=== PATIENT | female | born 1990 | race Caucasian/White ===

== ENCOUNTER 2019-03-18 21:05 | Inpatient (IN) ==
[2019-03-18] MEDS ORDERED: ONDANSETRON 4 MG/2 ML VIAL IV PRN (21:18)
[2019-03-18] MEDS ORDERED: MEPERIDINE 50 MG/1 ML VIAL IV PRN (21:18)
[2019-03-18] MEDS ORDERED: BUTORPHANOL 2 MG/ML VIAL IV PRN (21:18)
[2019-03-18] MEDS ORDERED: CITRIC ACID/SODIUM CITRATE 30 ML UDCUP PO PRN (21:24)
[2019-03-18] MEDS ORDERED: FAMOTIDINE 20 MG/2 ML VIAL IV PRN (21:25)
[2019-03-18] MEDS ORDERED: ePHEDrine 50 MG/ML AMP IV PRN (21:26)
[2019-03-18] MEDS ORDERED: fentaNYL 2 MCG/ROPIV 0.2% EPID 100 ML EPIDURAL SCH (21:30)
[2019-03-18] MEDS ORDERED: LACTATED RINGERS 1,000 ML IV SCH (21:30)
[2019-03-18 21:42] LABS: Basophils % 0.2 % (0.0-0.8); Eosinophils % 0.2 % (0.00-10.9); Hematocrit 32.7 VOL% (35.7-47.0); Hemoglobin 11.7 GM/DL (12.0-16.0); Immature Granulocytes % 0.9 %; Immature Granulocytes Absolute 0.12 #; Lymphocytes % 15.6 % (21.3-54.2); Mean Corpuscular HGB Conc 35.8 GM/DL (32-36); Mean Corpuscular Volume 87.7 FL (87-102); Mean Platelet Volume 10.9 FL (9.6-12.0); Monocytes % 7.2 % (1.7-12.7); Neutrophils % 75.9 % (38.7-73.9); Platelet Count 138 T/CUMM (130-400); Red Blood Count 3.73 MC/CUMM (3.8-5.5); Red Cell Distribution Width 13.1 % (9.3-17.3); White Blood Count 12.9 T/CUMM (4-12)
[2019-03-18 22:08] LABS: Alanine Aminotransferase 14 U/L (13-56); Albumin 2.9 G/DL (3.4-5.0); Alkaline Phosphatase 141 U/L (45-117); Aspartate Amino Transferase 17 U/L (0-37); Bilirubin,Total < 0.39 MG/DL (0.2-1.0); Blood Urea Nitrogen 10 MG/DL (7-18); Calcium 8.9 MG/DL (8.5-10.1); Estimated Glom Filtration Rate 128 ML/MIN; Glucose 85 MG/DL (74-106); Osmolality,Calculated 274.5 MOS/KG (273-304); Total Protein 6.6 G/DL (6.4-8.3)
[2019-03-19] MEDS ORDERED: MEPERIDINE 25 MG/1 ML VIAL IV PRN (01:29)
[2019-03-19] MEDS ORDERED: OXYTOCIN/LR 20 UNIT/1,000 ML BAG IV ONE ×3 (07:42→09:25)
[2019-03-19] MEDS ORDERED: OXYTOCIN/LR 20 UNIT/1,000 ML BAG IV SCH (08:00)
[2019-03-19 08:53] LABS: Apearance,Urine CLEAR (Clear); Bilirubin,Urine Negative (Negative); Blood, Urine Negative (Negative); Glucose,Urine (UA) Negative (Negative); Ketones,Urine Negative (Negative); Mucus,Urine Occasional /LPF (Occasional); Nitrite,Urine Negative (Negative); Protein,Urine Negative; RBC,Urine <1 /HPF (0-4); Squamous Epithelial Cell,Urine Occasional /HPF (0-10); Urine Color Yellow (Yellow); Urine Specific Gravity 1.015 (1.001-1.035); WBC,Urine <1 /HPF (0-6)
[2019-03-19] MEDS ORDERED: TRANEXAMIC ACID 1,000 MG/10 ML VIAL ONE (08:56)
[2019-03-19] MEDS ORDERED: miSOPROStoL 200 MCG TABLET ONE (08:56)
[2019-03-19] MEDS ORDERED: CARBOPROST TROMETHAMINE 250 MCG/ML AMP IM ONE (08:56)
[2019-03-19] MEDS ORDERED: METHYLERGONOVINE 0.2 MG/1 ML AMP ONE (08:56)
[2019-03-19] MEDS ORDERED: oxyCODONE/ACETAMINOPHEN 5-325 MG TABLET PO PRN (09:25)
[2019-03-19] MEDS ORDERED: WITCH HAZEL PADS 100/JAR TOP PRN (09:25)
[2019-03-19] MEDS ORDERED: BENZOCAINE 20%/MENTHOL 0.5% SPRAY 56 GM CAN TOP PRN (09:25)
[2019-03-19] MEDS ORDERED: MEASLES/MUMPS/RUBELLA VACCINE 0.5 ML VIAL SUBCUT ONE (09:25)
[2019-03-19] MEDS ORDERED: BISACODYL 10 MG SUPP RECTAL PRN (09:25)
[2019-03-19] MEDS ORDERED: HYDROCORTISONE 2.5% RECTAL CREAM 30 GM TUBE TOP PRN (09:25)
[2019-03-19] MEDS ORDERED: ACETAMINOPHEN 325 MG TABLET PO PRN (09:25)
[2019-03-19] MEDS ORDERED: DIPH/TET/ACEL PERT BOOSTER VACCINE 0.5 ML VIAL IM ONE (09:25)
[2019-03-19] MEDS ORDERED: LANOLIN 50% CREAM 0.3 OZ TUBE TOP PRN (09:25)
[2019-03-19] MEDS ORDERED: ONDANSETRON 4 MG/2 ML VIAL IV PRN (09:25)
[2019-03-19] MEDS ORDERED: RHO(D) IMMUNE GLOBULIN 300 MCG SYRINGE IM ONE (09:25)
[2019-03-19] MEDS: oxyCODONE/ACETAMINOPHEN 5-325 MG TABLET PO PRN ×2 (13:55→19:56)
[2019-03-19] MEDS: IBUPROFEN 800 MG TABLET PO PRN ×2 (13:55→21:34)
[2019-03-19] MEDS: DOCUSATE SODIUM 100 MG CAPSULE PO SCH (21:33)
[2019-03-20] MEDS ORDERED: SIMETHICONE CHEW 80 MG TABLET PO PRN (00:22)
[2019-03-20] MEDS: oxyCODONE/ACETAMINOPHEN 5-325 MG TABLET PO PRN (01:40)
[2019-03-20] MEDS: IBUPROFEN 800 MG TABLET PO PRN ×3 (04:03→20:23)
[2019-03-20 05:45] LABS: Basophils % 0.3 % (0.0-0.8); Eosinophils # 0.1 10*3/uL (0.0-0.87); Eosinophils % 0.9 % (0.00-10.9); Hematocrit 30.2 VOL% (35.7-47.0); Hemoglobin 10.6 GM/DL (12.0-16.0); Immature Granulocytes % 0.7 %; Lymphocytes # 2.1 10*3/uL (1.4-4.0); Lymphocytes % 14.2 % (21.3-54.2); Mean Corpuscular HGB Conc 35.1 GM/DL (32-36); Mean Corpuscular Volume 88.6 FL (87-102); Mean Platelet Volume 11.2 FL (9.6-12.0); Monocytes % 6.4 % (1.7-12.7); Neutrophils % 77.5 % (38.7-73.9); Platelet Count 102 T/CUMM (130-400); Red Blood Count 3.41 MC/CUMM (3.8-5.5); Red Cell Distribution Width 13.4 % (9.3-17.3); White Blood Count 14.7 T/CUMM (4-12)
[2019-03-20] MEDS: DOCUSATE SODIUM 100 MG CAPSULE PO SCH ×2 (08:20→20:21)
[2019-03-20] MEDS ORDERED: SIMETHICONE CHEW 80 MG TABLET PO SCH (20:22)
[2019-03-20] MEDS: SIMETHICONE CHEW 80 MG TABLET PO PRN (20:33)
[2019-03-21] MEDS: IBUPROFEN 800 MG TABLET PO PRN ×2 (04:44→10:12)
[2019-03-21] MEDS: SIMETHICONE CHEW 80 MG TABLET PO PRN (04:44)
[2019-03-21 07:21] VITALS: BP 104/61
[2019-03-21] MEDS: DOCUSATE SODIUM 100 MG CAPSULE PO SCH (10:13)
== END 2019-03-21 12:00 | disposition home or self-care (01) | DRG 560 ==
LOC: N.LD 21:05 → N.OB 03-19 12:34
PROVIDERS: ADMIT Specialist; ATTEND Specialist